=== PATIENT | male | born 1985 | race Two or more races ===

== ENCOUNTER → 2018-02-19 | Outpatient (CLI) | payer OTHER ==
[~2018-02-19] MED LIST: HYDR-4683 PO; VALA1TAB29 PO
== END | disposition home or self-care (01) ==
LOC: Rad HDHVI 09:57
PROVIDERS: ATTEND Internal Medicine Cardiovascular Disease
DX: M51.24 Other intervertebral disc displacement, thoracic region (principal); M53.3 Sacrococcygeal disorders, not elsewhere classified; K46.9 Unspecified abdominal hernia without obstruction or gangrene; M17.11 Unilateral primary osteoarthritis, right knee
CPT/HCPCS: 72128; 72131; 72192; 73562

== ENCOUNTER → 2018-04-09 | Outpatient (CLI) | payer OTHER ==
[~2018-04-09] MED LIST changes: +IOHEXOL 350 MG/ML 100ML IJ ONE; +diphenhdrAMINE HCL 25 MG CAP PO ONE; +methylPREDNISolone SOD SUCC 125 MG/2 ML VL IV ONE; +methylPREDNISolone SOD SUCC 125 MG/2 ML VL ONE
[2018-04-09 12:10] VITALS: BP 132/66
[2018-04-09 13:25] VITALS: BP 111/77
== END | disposition home or self-care (01) ==
LOC: Rad HDHVI 12:10
PROVIDERS: ATTEND Internal Medicine Cardiovascular Disease
DX: M25.511 Pain in right shoulder (principal); Z91.81 History of falling
CPT/HCPCS: 73200; 82565; 96374; G0463; J2930; Q9967

== ENCOUNTER → 2019-03-11 | Outpatient (CLI) | payer OTHER ==
[~2019-03-11] MED LIST changes: -HYDR-4683 PO; +HYDR-4833 PO; -IOHEXOL 350 MG/ML 100ML IJ ONE; -diphenhdrAMINE HCL 25 MG CAP PO ONE; -methylPREDNISolone SOD SUCC 125 MG/2 ML VL IV ONE; -methylPREDNISolone SOD SUCC 125 MG/2 ML VL ONE
== END | disposition home or self-care (01) ==
LOC: Rad HDHVI 12:32
PROVIDERS: ATTEND Internal Medicine Cardiovascular Disease
DX: M17.11 Unilateral primary osteoarthritis, right knee (principal); M25.461 Effusion, right knee
CPT/HCPCS: 73562